=== PATIENT | male | born 1955 | race Caucasian/White ===

== ENCOUNTER 2021-12-09 09:21 | Outpatient (CLI) | payer BC, SELFPAY ==
[2021-12-09 16:47] LABS: Free T4 Free Thyroxine 2.04 ng/mL (0.78-2.19)
[2021-12-09 17:05] LABS: Thyroid Stimulating Hormone < 0.015 uIU/mL (0.465-4.680)
== END 2021-12-09 09:22 | disposition home or self-care (01) ==
LOC: ANHWCLAB 09:23
PROVIDERS: PCP Internal Medicine; Referring Provider Internal Medicine Endocrinology, Diabetes & Metabolism; Visit Provider Internal Medicine Endocrinology, Diabetes & Metabolism
DX: E03.9 Hypothyroidism, unspecified (principal)
CPT/HCPCS: 36415; 84439; 84443

== ENCOUNTER 2021-12-16 09:37 | Outpatient (CLI) | payer BC, SELFPAY ==
[2021-12-16 16:59] LABS: Free T4 Free Thyroxine 2.36 ng/mL (0.78-2.19)
[2021-12-16 17:14] LABS: Thyroid Stimulating Hormone < 0.015 uIU/mL (0.465-4.680)
[2021-12-19 05:46] LABS: Triiodothyronine T3 Free 4.5 pg/mL (2.3-4.2)
== END 2021-12-16 09:38 | disposition home or self-care (01) ==
PROVIDERS: PCP Internal Medicine; Referring Provider Internal Medicine Endocrinology, Diabetes & Metabolism; Visit Provider Internal Medicine Endocrinology, Diabetes & Metabolism
DX: E03.9 Hypothyroidism, unspecified (principal); E04.2 Nontoxic multinodular goiter
CPT/HCPCS: 36415; 84439; 84443; 84481

== ENCOUNTER 2021-12-25 09:03 | Outpatient (CLI) | payer BC, SELFPAY ==
[2021-12-25 12:46] LABS: Free T4 Free Thyroxine 0.73 ng/mL (0.78-2.19)
[2021-12-25 12:59] LABS: Thyroid Stimulating Hormone 0.128 uIU/mL (0.465-4.680)
== END 2021-12-25 09:04 | disposition home or self-care (01) ==
LOC: ANHWCLAB 09:05
PROVIDERS: PCP Internal Medicine; Visit Provider Internal Medicine Endocrinology, Diabetes & Metabolism
DX: E03.9 Hypothyroidism, unspecified (principal)
CPT/HCPCS: 36415; 84439; 84443

== ENCOUNTER 2022-01-01 08:48 | Outpatient (CLI) | payer BC, SELFPAY ==
[2022-01-01 13:09] LABS: Free T4 Free Thyroxine 0.34 ng/mL (0.78-2.19)
== END 2022-01-01 08:49 | disposition home or self-care (01) ==
LOC: ANHWCLAB 08:50
PROVIDERS: PCP Internal Medicine; Referring Provider Internal Medicine Endocrinology, Diabetes & Metabolism; Visit Provider Internal Medicine Endocrinology, Diabetes & Metabolism
DX: E03.9 Hypothyroidism, unspecified (principal)
CPT/HCPCS: 36415; 84439; 84443

== ENCOUNTER 2022-10-16 12:41 | Outpatient (CLI) | payer BC, SELFPAY ==
[2022-10-16 13:38] LABS: Free T4 Free Thyroxine 1.44 ng/mL (0.78-2.19)
== END 2022-10-16 12:42 | disposition home or self-care (01) ==
LOC: ANHLAB 12:43
PROVIDERS: PCP Internal Medicine; Visit Provider Internal Medicine Endocrinology, Diabetes & Metabolism
DX: E03.9 Hypothyroidism, unspecified (principal)
CPT/HCPCS: 36415; 84439; 84443

== ENCOUNTER 2022-12-12 08:24 | Outpatient (CLI) | payer BC, SELFPAY ==
--- NOTE | ~2022-12-12 | US_ITS ---
Limited Abdominal Sonogram: Real-time sonographic imaging of the right upper quadrant was performed. Clinical History: Abnormal serum enzymes Findings: The visualized liver appears normal with no evidence of mass lesion or bile duct dilatatio n. Main portal vein demonstrates normal direction of flow. The gallbladder is absent, compatible prio r cholecystectomy. The common bile duct measures 4 mm. The pancreas, aorta, and IVC are obscured by bowel gas shadowing/patient body habitus. Large cystic mass noted in the mid abdomen versus fluid dis tended stomach or other bowel. Impression: Large cystic mass in the central abdomen versus fluid distended stomach or other bowel. Correlate cli nically. Consider CT to further evaluate as indicated. Status post cholecystectomy. Reviewed, dictated and finalized at [facility]. E WIRER Impression: Large cystic mass in the central abdomen versus fluid distended stomach or othe r bowel. Correlate clinically. Consider CT to further evaluate as indicated. Status post cholecystectomy.
== END 2022-12-12 08:25 | disposition home or self-care (01) ==
PROVIDERS: PCP Family Medicine; Visit Provider Family Medicine
DX: R74.8 Abnormal levels of other serum enzymes (principal); Z90.49 Acquired absence of other specified parts of digestive tract
CPT/HCPCS: 76705

== ENCOUNTER 2022-12-17 15:55 | Outpatient (CLI) | payer BC, SELFPAY ==
[2022-12-17 17:37] LABS: Free T4 Free Thyroxine 1.41 ng/mL (0.78-2.19)
== END 2022-12-17 15:56 | disposition home or self-care (01) ==
LOC: ANHWCLAB 15:56
PROVIDERS: PCP Family Medicine; Visit Provider Internal Medicine Endocrinology, Diabetes & Metabolism
DX: E03.9 Hypothyroidism, unspecified (principal)
CPT/HCPCS: 36415; 84439; 84443

== ENCOUNTER 2022-12-22 06:38 | Outpatient (CLI) | payer BC, SELFPAY ==
--- NOTE | ~2022-12-22 | CT_ITS ---
EXAMINATION: CT abdomen pelvis w con DATE: 12/22/2022 07:21 INDICATION: Large cystic mass visualized on abdominal ultrasound examination TECHNIQUE: Computed tomography (CT) of the abdomen and pelvis was performed with 100 CC Omnipaque 350 intravenous contrast. Automated exposure control and iterative reconstruction technique were employe d. Exam dose: 761.69 mGy-cm total exam DLP. COMPARISON: 12/12/2022 Limited abdominal ultrasound examination FINDINGS: Minimal discoid atelectasis or scarring, right lower lobe. The lung bases are clear of infi ltrate or consolidation. Normal heart size. No pericardial or pleural effusion. Status post cholecystectomy. No hepatic, splenic, pancreatic, adrenal space-occupying mass lesion. A very small posterior mid left renal cortical cyst is noted. Several right renal cysts including 2 e xophytic cysts, measuring up to 3.4 cm. No hydronephrosis of either kidney. At least 4 cm enhancing mass is noted at the base of the urinary bladder, with severe bladder distent ion, diverticulum formation. Differential diagnosis includes prostate and/or urothelial bladder carci noma. There is atherosclerotic calcification of the abdominal aorta and calcified plaques at the origins of the celiac and particularly superior mesenteric as well as renal arteries. No abdominal aortic aneur ysm. Calcification of the iliac and femoral arteries. There numerous small bowel air-fluid levels, most prominent in the duodenum and jejunum. Normal appendix. There are innumerable diverticula of the sigmoid colon. Diverticulosis of the right colon is noted as well. No bowel obstruction, bowel wall thickening or pneumatosis is detected. There are however nume fadi gas bubbles scattered in the left and right abdomen. No abscess or abnormal fluid collection is identified. Proximal 0.7 cm sclerotic lesion of the left iliac bone, statistically most likely a bone island. Severe degenerative disc disease at L5-S1. IMPRESSION: Pneumoperitoneum, suggesting ruptured hollow viscus. There are numerous diverticula of t he left and right colon; ruptured diverticulum may be responsible for the diverticulosis. No abscess is identified Numerous small bowel air-fluid levels, likely due to adynamic ileus Status post cholecystectomy Small sliding hiatal hernia Severe distention of the urinary bladder, which may be due to prostate carcinoma and/or urothelial ca rcinoma at the base of the urinary bladder. Urgent urological consultation is recommended. Dr. Melara telephoned the report to the nurse voicemail at [phone]. Reviewed, dictated and finalized at [facility]. Reviewed, dictated and finalized at [facility]. IMPRESSION: Pneumoperitoneum, suggesting ruptured hollow viscus. There are num erous diverticula of the left and right colon; ruptured diverticulum may be res ponsible for the diverticulosis. No abscess is identified Numerous small bowel air-fluid levels, likely due to adynamic ileus Status post cholecystectomy Small sliding hiatal hernia Severe distention of the urinary bladder, which may be due to prostate carcinom a and/or urothelial carcinoma at the base of the urinary bladder. Urgent urolog ical consultation is recommended. Dr. Melara telephoned the report to the nurse voicemail at [phone].
[2022-12-22 07:10] LABS: Estimated Glomerular Filt Rate > 60
== END 2022-12-22 06:39 | disposition home or self-care (01) ==
PROVIDERS: PCP Family Medicine; Visit Provider Family Medicine
DX: R19.00 Intra-abdominal and pelvic swelling, mass and lump, unspecified site (principal); Z90.49 Acquired absence of other specified parts of digestive tract; K44.9 Diaphragmatic hernia without obstruction or gangrene
CPT/HCPCS: 74177; Q9967

== ENCOUNTER 2023-06-23 14:12 | Outpatient (CLI) | payer BC, SELFPAY ==
--- NOTE | ~2023-06-23 | CT_ITS ---
EXAMINATION: CT lung screening DATE: 06/23/2023 14:31 INDICATION: Personal history of nicotine dependence, prior smoker with 45 pack year history TECHNIQUE: Computed tomography (CT) of the chest was performed without intravenous contrast. The dose -length product (DLP) was 164.02 mGy-cm. Automated exposure control and iterative reconstruction tech [employer] were employed. COMPARISON: None FINDINGS: There is mild emphysema. There are scattered small nodules of the lungs. The largest measur es 5 mm in the right lower lobe. No pleural effusion or pneumothorax. The lungs are free of acute opa cities. Calcified pulmonary nodules and calcified subcarinal lymph nodes are consistent with old gran ulomatous disease. No pathologically enlarged thoracic lymph nodes are identified. The heart size is normal. Calcified coronary artery atherosclerosis is noted. There are surgical changes of cholecystec [place]. There is a diverticulum of the second portion of the duodenum. There is mild thoracic spondylos is. IMPRESSION: 1. Lung-RADS category 2: Benign appearance or behavior. Continue annual screening with noncontrast lo w-dose chest CT in 12 months. Reviewed, dictated and finalized at [facility]. IMPRESSION: 1. Lung-RADS category 2: Benign appearance or behavior. Continue annual screeni ng with noncontrast low-dose chest CT in 12 months.
== END 2023-06-23 14:13 | disposition home or self-care (01) ==
LOC: ANHIMG 14:15
PROVIDERS: PCP Family Medicine; Visit Provider Family Medicine
DX: Z12.2 Encounter for screening for malignant neoplasm of respiratory organs (principal); Z87.891 Personal history of nicotine dependence
CPT/HCPCS: 71271